=== PATIENT | female | born 1990 | race Two or more races ===

== ENCOUNTER 2020-04-18 18:34 | Emergency (ER) | payer MEDICAID ==
[~2020-04-18] VITALS: Ht 167.6 cm; Wt 95.3 kg
[~2020-04-18 18:34] MED LIST: ACET1CAP14 PO; PREN-96 PO
[2020-04-18 22:39] VITALS: BP 140/66
[2020-04-18] MEDS ORDERED: BACITRACIN TOP OINT 1 UD PKG TOP ONE (23:00)
[2020-04-18] MEDS ORDERED: TETANUS-DIPTH-ACEL PERTUSSIS 0.5ML SYR Tdap IM ONE (23:00)
== END 2020-04-18 23:50 | disposition home or self-care (01) ==
LOC: ER 18:36
DX: S61.217A Laceration without foreign body of left little finger without damage to nail, initial encounter (principal); Z79.899 Other long term (current) drug therapy; E11.9 Type 2 diabetes mellitus without complications; X58.XXXA Exposure to other specified factors, initial encounter; Y93.89 Activity, other specified; Y92.89 Other specified places as the place of occurrence of the external cause; Y99.8 Other external cause status
CPT/HCPCS: 12001; 73140; 90471; 90715